=== PATIENT | female | born 1980 | race Caucasian/White ===

== ENCOUNTER 2021-03-30 12:23 | Emergency (ER) | payer OTHER, SELFPAY ==
[2021-03-30] VITALS (7 sets, daily range): BP systolic 134–151; BP diastolic 52–91; PULSE 61–97; RESP 15–23; TEMP 37.4–38.7; O2SAT 93–97
--- NOTE | ~2021-03-30 | CT_ITS ---
EXAMINATION: CT abdomen pelvis w con DATE: 03/30/2021 13:55 INDICATION: Fever and swelling along a recent section incision TECHNIQUE: Computed tomography (CT) of the abdomen and pelvis was performed with 100 mL Omnipaque-350 intravenous contrast. Automated exposure control and iterative reconstruction technique were employe d. The dose-length product was 1413.20 mGy-cm. COMPARISON: None FINDINGS: Small calcified nodule in the right lower lobe and calcified right hilar lymph node consistent with o ld granulomatous disease. Heart size is normal. No pericardial or pleural effusion. Focal hepatic nigel atosis along the ligamentum teres. Gallbladder, pancreas, right kidney and bilateral adrenal glands a re normal. 1 mm nonobstructing stone within a middle calyx of the left kidney. Bowels including the a ppendix are normal. Bladder is normal. Enlarged post gravid uterus. There is a 10.7 x 3.5 x 3.7 cm lo culated subcutaneous fluid collection along the right side of the transverse section wound w hich could represent a hematoma/seroma or abscess. No intra-abdominal abscess or free intraperitoneal gas or fluid. No pathologically enlarged abdominal or pelvic lymphadenopathy. Couple small splenic calcifications consistent with old granulomatous disease. Mild scattered degenerative skeletal change s. IMPRESSION: 1. 10.7 x 3.5 x 3.7 cm loculated subcutaneous fluid collection at the right side of the sect ion wound which could represent either a hematoma/seroma or abscess. 2. Nonobstructing 1 mm left renal stone. Reviewed, dictated and finalized at location A. IMPRESSION: 1. 10.7 x 3.5 x 3.7 cm loculated subcutaneous fluid collection at the right danielle e of the section wound which could represent either a hematoma/seroma or abscess. 2. Nonobstructing 1 mm left renal stone.
--- NOTE | ~2021-03-30 | US_ITS ---
EXAMINATION: US percutaneous drain w cath DATE: 03/30/2021 16:48 INDICATION: section surgical wound abscess TECHNIQUE: The procedure including the risks and benefits was discussed with the patient. Risks discu ssed included bleeding and infection. The patient understood the risks and agreed to proceed. The sk in overlying the anterior right lower quadrant was prepped and draped in usual sterile fashion. Anes thetic was administered with 1% lidocaine subcutaneously. Utilizing trocar technique a 12 Lao drai nage catheter was advanced under continuous ultrasound observation into the subcutaneous fluid collec tion of concern. The needle and stiffener were removed and the loop formed. The catheter was attached to the skin with suture and an about equipment and a sterile dressing were applied. An additional ad hesive fixation device was applied. 20 mL of faria-colored purulent appearing fluid was aspirated and s ent to the lab for Gram stain and cultures as ordered by the emergency department. The catheter was t hen attached to suction drainage and was draining additional more lipyals-aqz-krkbuue fluid at the co nclusion of the procedure. Post procedure ultrasound demonstrated no hemorrhage and significant decre ase in size of the abscess cavity. FINDINGS: Ultrasound images demonstrate approximately 9 x 3.6 cm loculated subcutaneous fluid collect ion along the anterior pelvic wall the region of the surgical wound. Subsequent images demonstrate th e drainage catheter within the fluid collection. IMPRESSION: 1. Successful Ultrasound-guided percutaneous abscess drain catheter placement into a left anterior pe lvic subcutaneous surgical wound abscess. Reviewed, dictated and finalized at location A. IMPRESSION: 1. Successful Ultrasound-guided percutaneous abscess drain catheter placement i nto a left anterior pelvic subcutaneous surgical wound abscess.
--- NOTE | ~2021-03-30 | XR_ITS ---
EXAMINATION: XR chest 2V EXAM DATE: 03/30/2021 14:02 INDICATION: Fever and chills. Asir in section 2 weeks ago. TECHNIQUE: Frontal and lateral projections of the chest obtained and reviewed. There is no prior ana dy for comparison. FINDINGS: The lungs are clear. There are no pleural effusions. The cardiomediastinal silhouette is within normal limits. There is no pneumothorax suspected. The bones and soft tissues are unremarkab le. IMPRESSION: No acute cardiopulmonary findings. Reviewed, dictated and finalized at location B.
[2021-03-30 13:28] LABS: Basophils Percent Auto 0.4 % (0.2-1.2); Eosinophils Absolute Auto 0.2 K/mm3 (0-0.3); Hematocrit 32.7 % (37.0-47.0); Hemoglobin 10.8 g/dL (12.0-15.0); Immature Granulocyte Absolute 0.09 K/mm3 (0.00-0.031); Lymphocytes Absolute Auto 0.83 K/mm3 (0.9-3.2); Lymphocytes Percent Auto 8.9 % (18.3-44.2); Mean Corpuscular Hemoglobin 29.8 pg (26-34); Mean Corpuscular Volume 90.3 fl (80-100); Mean Platelet Volume 9.9 fl (7.4-10.4); Monocytes Absolute Auto 0.4 K/mm3 (0.1-0.6); Monocytes Percent Auto 4.2 % (2.6-8.5); Neutrophils Absolute Auto 7.8 K/mm3 (1.3-6.7); Neutrophils Percent Auto 83.5 % (45.5-73.1); Platelet Count Result 398 k/mm3 (150-375); Red Blood Count 3.62 M/mm3 (4.2-5.4); Red Cell Distribution Width 14.3 % (11.5-14.5); White Blood Count 9.3 K/mm3 (4.5-10.0)
[2021-03-30 13:35] LABS: Add Urine Microscopic? YES; Appearance Urine Cloudy (Clear); Bacteria Urine Trace /hpf; Bilirubin Urine Negative (Negative); Blood Urine 2+ (Negative); Color Urine Amber (Yellow); Glucose Urine UA Negative (Negative); Ketones Urine Negative (Negative); Lactic Acid Reflex 0.9 mmol/L (0.7-2.1); Leukocyte Esterase Ur 1+ LEU/UL (Negative); Mucus Urine Rare /lpf; Nitrate Urine Negative (Negative); Protein Urine 1+ mg/dL (Negative); Specific Grav Ur 1.013 (1.001-1.035); Squamous Epithelial Cell Urine Rare /hpf (Few); Urobilinogen Urine Negative mg/dL (<2.0)
[2021-03-30 13:38] LABS: Alanine Aminotransferase 21 U/L (4-35); Albumin Level 3.5 g/dL (3.5-5.1); Alkaline Phosphatase 80 U/L (38-126); Anion Gap 5 mmol/L (8-16); Aspartate Amino Transferase 30 U/L (14-36); Bilirubin,Total 0.3 mg/dL (0.2-1.3); Blood Urea Nitrogen 9 mg/dL (7-17); CRP 5.3 mg/dL (<1.0); Calcium 8.8 mg/dL (8.4-10.2); Carbon Dioxide 27 mmol/L (22-30); Chloride 106 mmol/L (98-107); Estimated CRCL calculation 144 ml/min; Estimated Glomerular Filt Rate > 60; Glucose 88 mg/dL (65-105); Potassium 3.6 mmol/L (3.4-5.0); Sodium 138 mmol/L (137-145)
[2021-03-30] MEDS: SODIUM CHLORIDE 0.9% IV 1,000 ML 999 ML IV CONT (13:38)
[2021-03-30 13:39] LABS: INR 1.1; Prothrombin Time 14.4 Seconds (11.1-14.7)
[2021-03-30 13:40] LABS: Partial Thromboplastin Time 28.7 SECONDS (22.3-36.8)
--- NOTE | 2021-03-30 14:39 | ED.FEVER ---
HPI - Fever General Chief Complaint: Fever Stated Complaint: Itching,swelling feet,shivering Time Seen by Provider: 03/30/21 13:01 Source: patient and RN notes reviewed Mode of arrival: ambulatory Limitations: no limitations History of Present Illness HPI Narrative: Patient is a 40-year-old female who presents to emergency department for evaluation of fever chills sweats that began today acutely patient gave on 03/14 with twins patient is followed by [facility] COD CLERK Shayy Segundo. Patient notes that she has been fine until today. Patient denies any known sources or illnesses or sick contacts. Patient has been taking ibuprofen and Tylenol for her symptoms. Denies any fever chills nausea vomiting diarrhea vaginal bleeding discharge or any wounds or sores Related Data Home Medications Medication Instructions Recorded Confirmed Daily 03/30/21 Miralax 03/30/21 Prevacid 03/30/21 Super B Complex 03/30/21 magcefdlpy-bygglhhnzmdwq-vjwa tablet 03/30/21 cholecalciferol (vitamin D3) 03/30/21 ibuprofen 03/30/21 Allergies Allergy/AdvReac Type Severity Reaction Status Date / Time No Known Allergies Allergy Verified 03/30/21 12:53 Review of Systems Review of Systems: All systems reviewed & are unremarkable except as noted in HPI and below PMFSH Past Medical History Medical History Obesity, morbid, BMI 40.0-49.9 Family History Family History Father Hypertension Family history of malignant neoplasm of kidney Sibling Family history of cardiac disorder Social History Social History Smoking status: Never smoker Alcohol intake: never Exam Narrative: Exam Narrative: GENERAL: Well-appearing, well-nourished, and in no acute distress. HEAD: Normocephalic, atraumatic. EYES: PERRLA and EOMI. ENT: Nares clear, no rhinorrhea or epistaxis. Mucous membranes moist. CHEST: Clear to auscultation. No respiratory distress. No wheezes rales or rhonchi HEART: Regular rate and rhythm. No murmur heard. Normal peripheral pulses. BREASTS: No wounds or sores of the breast ABDOMEN: Soft, nontender, nondistended EXTREMITIES: Normal range of motion. No edema. SKIN: Warm, dry, no rash. Patient with firm tender indurated warm to touch area along the right midline abdomen at the incision no drainage NEURO: No focal deficits. Alert and oriented x3. Cranial nerves II through XII grossly intact PSYCH: Normal mood and affect. Course Course Emergency Course: Patient was evaluated in the emergency department found to have seroma turn abscess at her abdominal wall from her discussions were made with her employment attorney and with radiology at [facility] the drain was placed purulent drainage was obtained and she will follow with her employment attorney on Friday was given antibiotics and medications and fluids in the emergency department with improvement cultures were sent patient agrees with this plan and will go home and follow with her on Friday Consultations Consultation #1: Discussions were made with the employment attorney Shayy Segundo who will follow the patient on Friday the drain is to be placed which is able to be done at [facility] will be managed with Keflex antibiotics pending cultures over the weekend Date: 03/30/21 Vital Signs Vital signs: Vital Signs Temperature 101.6 F H 03/30/21 12:34 Pulse Rate 97 03/30/21 12:34 Respiratory Rate 18 03/30/21 12:34 Blood Pressure 149/77 H 03/30/21 12:34 Pulse Oximetry 97 03/30/21 12:34 Temperature 99.4 F 03/30/21 14:06 Pulse Rate 72 03/30/21 16:59 Respiratory Rate 17 03/30/21 16:59 Blood Pressure 143/85 H 03/30/21 16:59 Pulse Oximetry 97 03/30/21 16:59 MDM - Fever MDM Narrative Medical decision making narrative: Patient presented with fever with impr
--- NOTE | 2021-03-30 18:39 | PC.NURSE ---
Addendum entered by Mayela Krishna RN 03/30/21 18:40: angélica polanco notified. Original Note: per ray in lab pt has a positive gram stain few gram + cocci many wbc
== END 2021-03-30 17:54 | disposition home or self-care (01) ==
PROVIDERS: Emergency Medicine Emergency Medical Services; Emergency Provider Emergency Medicine; PCP Family Medicine
DX: O86.01 Infection of obstetric surgical wound, superficial incisional site (principal); O99.893 Other specified diseases and conditions complicating puerperium; N20.0 Calculus of kidney; O99.215 Obesity complicating the puerperium; E66.01 Morbid (severe) obesity due to excess calories
CPT/HCPCS: 36415; 71046; 74177; 75989; 80053; 81001; 83605; 85025; 85610; 85730; 86140; 87040; 87070; 87075; 87086; 87088; 87147; 87186; 87205; 96361; 96365; 96367; 99284; C1729; J0131; J2543; J7030; Q9967

== ENCOUNTER → 2021-07-25 12:36 | Outpatient (CLI) | payer OTHER, SELFPAY ==
--- NOTE | ~2021-07-25 | XR_ITS ---
EXAMINATION: XR foot LT min 3V EXAM DATE: 07/25/2021 13:17 INDICATION: M77.42 - Metatarsalgia, left foot . Midfoot pain, anterior swelling. Medial ankle pain. N o known recent trauma. TECHNIQUE: Left foot dorsoplantar, lateral and oblique projections obtained and reviewed. There is n o prior study for comparison. FINDINGS: Left metatarsal bones unremarkable. Small calcaneal inferior spur. There are no acute fr actures or dislocations identified. There is no subcutaneous gas. The soft tissue is unremarkable. There are no radiopaque foreign bodies. IMPRESSION: 1. Unremarkable XR foot LT min 3V exam. Reviewed, dictated and finalized at location B.
== END ==
PROVIDERS: PCP Family Medicine; Visit Provider Family Medicine
DX: M77.42 Metatarsalgia, left foot (principal); E66.9 Obesity, unspecified; M77.32 Calcaneal spur, left foot
CPT/HCPCS: 73630

== ENCOUNTER 2022-07-09 09:31 | Outpatient (CLI) | payer OTHER, SELFPAY ==
--- NOTE | 2022-07-09 09:42 | ECHO_ITS ---
Patient Info Name: Cecilia Beckwith Age: 41 years : 1980 Gender: Female Ht: 67 in Wt: 240 lbs BSA: 2.32 m2 HR: 74 bpm BP: 134 / 87 mmHg Heart Rhythm: Sinus Rhythm Technical Quality: Good Exam Date: 07/09/2022 9:59 AM Exam Location: [facility] Patient Status: Outpatient Admit Date: 07/09/2022 Staff Ordering Physician: Winsome Burrell MD Fire Lieutenant Marine: Jania Bailey RDCS Attending Provider: Winsome Burrell MD Referring Physician: Indra HOLLAND; Exam Type: CA echo doppler color flow Study Info Indications - FAMILY HISTORY OF GENETIC CARDIOMYOPATHY Complete two-dimensional, color flow and Doppler transthoracic echocardiogram is performed. Summary 1. Complete two-dimensional, color flow and Doppler transthoracic echocardiogram is performed. 2. Left ventricular chamber dimension is normal. 3. Left ventricular systolic function is normal, estimated at 60-65%. 4. The left ventricular diastolic function is normal. 5. E/e' 9 is minimally elevated. 6. There is trace tricuspid valve regurgitation. Left Ventricle E/e' 9 is minimally elevated. Left ventricular chamber dimension is normal. Left ventricular systolic function is normal, estimated at 60-65%. The left ventricular diastolic function is normal. Right Ventricle Right ventricular systolic function is normal and with normal TAPSE 2.4 cm. Right ventricular chamber dimension is normal. Left Atria Left atrial chamber dimension is normal. Right Atria Right atrial chamber dimension is normal. Aortic Valve The aortic valve is trileaflet. There is no aortic valve stenosis. There is no aortic valve regurgitation. Pulmonic Valve There is no pulmonic regurgitation. Mitral Valve There is no mitral valve stenosis. There is no mitral valve regurgitation. Tricuspid Valve There is trace tricuspid valve regurgitation. RVSP is not calculated due to an inadequate TR jet. Pericardium/Pleural There is no pericardial effusion. Inferior Vena Cava Normal inferior vena cava with >50% collapse upon inspiration consistent with normal right atrial pressure, 5 mmHg. Aorta The aortic root size at the sinus of Valsalva is normal. Left Ventricular Outflow Tract Name Value Normal LVOT 2D LVOT Diameter 2.3 cm LVOT Doppler LVOT Peak Gradient 4 mmHg LVOT Mean Gradient 2 mmHg LVOT VTI 23 cm LVOT VTI/AV VTI Ratio 0.8 LVOT Stroke Volume 96 ml LVOT CO 6.4 l/min LVOT CI 2.8 l/min/m2 Pulmonic Valve Name Value Normal RVOT Doppler RVOT Peak Gradient 2 mmHg PV Doppler
== END 2022-07-09 09:32 | disposition home or self-care (01) ==
PROVIDERS: PCP Family Medicine; Visit Provider Family Medicine
DX: Z82.49 Family history of ischemic heart disease and other diseases of the circulatory system (principal)
CPT/HCPCS: 93306

== ENCOUNTER 2022-08-14 08:49 | Outpatient (CLI) | payer OTHER, SELFPAY ==
--- NOTE | ~2022-08-14 | MM_ITS ---
EXAMINATION: MM screening raymon BI w jessie HISTORY: Baseline screening mammogram TECHNIQUE: Craniocaudal and mediolateral oblique 3-D tomosynthesis images were obtained and synthetic 2-D images were generated. CAD analysis was submitted and interpreted. COMPARISON: None, baseline BREAST PARENCHYMAL COMPOSITION: There are scattered areas of fibroglandular density. FINDINGS: There is no suspicious mass, calcification, or architectural distortion to suggest malignan cy in either breast. There has been no suspicious interval change. IMPRESSION: 1. No mammographic evidence of malignancy. 2. Recommend routine screening mammography in one year. BI-RADS Category 1: Negative Reviewed, dictated and finalized at location D.
== END 2022-08-14 08:50 | disposition home or self-care (01) ==
PROVIDERS: PCP Family Medicine; Visit Provider Family Medicine
DX: Z12.31 Encounter for screening mammogram for malignant neoplasm of breast (principal)
CPT/HCPCS: 77063; 77067

== ENCOUNTER 2022-12-11 11:14 | Outpatient (CLI) | payer OTHER, SELFPAY ==
[2022-12-11 12:35] LABS: Kit Draw Collected
== END 2022-12-11 11:15 | disposition home or self-care (01) ==
LOC: ANHGOSHLAB 11:15
PROVIDERS: PCP Family Medicine; Visit Provider Family Medicine
DX: N92.1 Excessive and frequent menstruation with irregular cycle (principal); E66.9 Obesity, unspecified; G35 Multiple sclerosis; N92.4 Excessive bleeding in the premenopausal period
CPT/HCPCS: 36415

== ENCOUNTER → 2023-12-30 08:46 | Outpatient (CLI) | payer OTHER, SELFPAY ==
--- NOTE | ~2023-12-30 | US_ITS ---
EXAMINATION: US abdomen complete DATE: 12/30/2023 09:03 INDICATION: Unspecified abdominal pain. TECHNIQUE: Multiple grayscale and Doppler ultrasound images of the abdomen were obtained. COMPARISON: CT abdomen and pelvis 03/30/2021 FINDINGS: The visualized portions of the head of the pancreas are normal. The liver is normal without focal lesion. There is normal flow in main portal vein. The gallbladder is normal in size. No gallst ones or gallbladder wall thickening. There is no sonographic Richards sign. The common duct is normal a nd measures 4 mm. Abdominal aorta is normal in caliber. The kidneys are normal in size. The spleen is normal in size. Calcifications in the spleen are consistent with old granulomatous disease. Inferior vena cava is normal. IMPRESSION: 1. No etiology for the patient's symptoms. Reviewed, dictated and finalized at location A. ORATOR LOADER
== END ==
PROVIDERS: PCP Family Medicine; Visit Provider Family Medicine
DX: R10.9 Unspecified abdominal pain (principal)
CPT/HCPCS: 76700

== ENCOUNTER 2024-03-16 01:03 | Day surgery (SDC) | payer OTHER, SELFPAY ==
[2024-03-08 14:25] VITALS: BMI 37.5
[2024-03-16 10:07] VITALS: BP 150/96; PULSE 80; RESP 18; TEMP 36.1; O2SAT 100
[2024-03-16] MEDS: LACTATED RINGERS 1,000 ML 150 ML IV CONT (10:20)
--- NOTE | 2024-03-16 10:30 | WPDANESEPPF ---
Anes - Initial Pre Proc Eval Procedure: Operation Date: 03/16/24 11:30 Proposed Procedures p Esophagogastroduodenoscopy & Colonoscopy - Rajan Dailey MD Date/Time: 03/16/24 10:30 Surgeon: Rajan Dailey MD Pre Op Diagnosis: GERD,Abdominal pain Patient Data Age: 43 Gender: F Height: 1.7 m Weight: 110 kg Last Vital Signs Temp 97 F L 03/16/24 10:07 Pulse 80 03/16/24 10:07 Resp 18 03/16/24 10:07 BP 150/96 H 03/16/24 10:07 Pulse Ox 100 03/16/24 10:07 O2 Del Method Room Air 03/16/24 10:07 Allergies Allergy/AdvReac Type Severity Reaction Status Date / Time No Known Allergies Allergy Verified 03/16/24 10:04 Home Medications Medication Instructions Recorded Confirmed Type teriflunomide 14 mg tablet 14 mg PO DAILY 07/11/22 03/08/24 History (Aubagio) metformin 500 mg tablet,extended 500 mg PO .COMPLEX #90 tabs 01/26/23 03/08/24 Rx release 24 hr lansoprazole 30 mg capsule,delayed 30 mg PO DAILY #90 caps 12/18/23 03/08/24 Rx release mecobalamin (vitamin B12) 1,000 1,000 mcg PO DAILY #30 tabs 12/26/23 03/08/24 Rx mcg chewable tablet vitamin B complex 1 tablet PO DAILY #30 tabs 12/26/23 03/08/24 Rx Turmeric/Curcumen 15,000 mg PO DAILY 03/08/24 03/08/24 History cholecalciferol (vitamin D3) 125 5,000 unit PO DAILY 03/08/24 03/08/24 History mcg (5,000 unit) tablet (Vitamin D3) vqkolqpr-nbg-agcm 4 mg-folic acid 1 tablet PO DAILY 03/08/24 03/08/24 History 200 mcg-vit K 25 mcg-lutein tablet (Centrum Minis Women 50 Plus) Patient hx anesthesia problems: none Family hx anesthesia problems: none Results Review: All pre-operative results and documents have been reviewed as part of the pre-operative evaluation. [facility] Past Medical History Medical History Hematoma (nontraumatic) of breast Traumatic hematoma of buttock Surgical History Surgical History H/O arthroscopic knee surgery Left Knee H/O arthroscopic knee surgery Left Knee H/O arthroscopic knee surgery Left Knee Family History Family History Father Hypertension Family history of malignant neoplasm of kidney Bladder cancer Sibling Family history of cardiac disorder Social History Social History (Updated 01/27/24 @ 14:57 by Mayela Miller MA) Smoking status: Never smoker Alcohol intake: current Drinks per week: 2 Alcohol use details: DRINKS Substance use: never Substance use type: does not use Do You Feel Safe in your Home?: Yes Lack of Transportation: No Lack of Food: Never True Current Housing: I Have Housing Concerned About Future Housing: No Difficulty Paying Gas/Electric Bills: No Difficulty Paying for Meds: No Currently Unemployed: No Education: Master's Degree or Higher Difficulty w/ Childcare or Family Care: No Living arrangements: with family Spiritual care concerns: No Anes - Eval Final PreProcedure Day of Procedure 03/16/24 10:30 Patient weight: obese Heart: regular rate and rhythm Lungs: clear to auscultation Airway: Mallampati scale class II Neurological: alert and oriented Last oral intake: >/= 8 hours ASA classification: III Emergent: no Anesthetic plan: proceed Anesthesia type and monitoring: general GIVS and standard monitoring Results Review: All pre-operative results and documents have been reviewed as part of the pre-operative evaluation. Informed Consent: The patient's anesthetic plan and its attendant risks and benefits were discussed with the patient/family/POA. Questions were solicited and answers provided to the satisfaction of the patient/family/POA.
--- NOTE | 2024-03-16 10:42 | PM.HPGS ---
History of Present Illness History of Present Illness Consent: Risks, benefits, and alternatives have been discussed and questions answered. Patient agrees to proceed with procedure. Chief complaint: GERD,Abdominal pain Narrative: Cecilia Beckwith is a 43 year old female with intermittent abdominal pain (had of twins then developed abscess and having pain in rlq since), also gerd for which lansoprazole is helping. Never had scopes. Review of Systems Review of Systems: All systems reviewed & are unremarkable except as noted in HPI and below PMFSH Past Medical History Medical History Hematoma (nontraumatic) of breast Traumatic hematoma of buttock Surgical History Surgical History H/O arthroscopic knee surgery Left Knee H/O arthroscopic knee surgery Left Knee H/O arthroscopic knee surgery Left Knee Family History Family History Father Hypertension Family history of malignant neoplasm of kidney Bladder cancer Sibling Family history of cardiac disorder Social History Social History (Updated 01/27/24 @ 14:57 by Mayela Miller MA) Smoking status: Never smoker Alcohol intake: current Drinks per week: 2 Alcohol use details: DRINKS Substance use: never Substance use type: does not use Do You Feel Safe in your Home?: Yes Lack of Transportation: No Lack of Food: Never True Current Housing: I Have Housing Concerned About Future Housing: No Difficulty Paying Gas/Electric Bills: No Difficulty Paying for Meds: No Currently Unemployed: No Education: Master's Degree or Higher Difficulty w/ Childcare or Family Care: No Living arrangements: with family Spiritual care concerns: No Meds Home Medications and Allergies Home Medications Medication Instructions Recorded Confirmed Type teriflunomide 14 mg tablet 14 mg PO DAILY 07/11/22 03/08/24 History ([place]ane) metformin 500 mg tablet,extended 500 mg PO .COMPLEX #90 tabs 01/26/23 03/08/24 Rx release 24 hr lansoprazole 30 mg capsule,delayed 30 mg PO DAILY #90 caps 12/18/23 03/08/24 Rx release mecobalamin (vitamin B12) 1,000 1,000 mcg PO DAILY #30 tabs 12/26/23 03/08/24 Rx mcg chewable tablet vitamin B complex 1 tablet PO DAILY #30 tabs 12/26/23 03/08/24 Rx Turmeric/Curcumen 15,000 mg PO DAILY 03/08/24 03/08/24 History cholecalciferol (vitamin D3) 125 5,000 unit PO DAILY 03/08/24 03/08/24 History mcg (5,000 unit) tablet (Vitamin D3) ddwskvhu-syt-npti 4 mg-folic acid 1 tablet PO DAILY 03/08/24 03/08/24 History 200 mcg-vit K 25 mcg-lutein tablet (Centrum Minis Women 50 Plus) Allergies Allergy/AdvReac Type Severity Reaction Status Date / Time No Known Allergies Allergy Verified 03/16/24 10:04 Vital Signs Vital Signs - 24 hr 03/16/24 10:07 Temperature 97 F L Pulse Rate 80 Respiratory Rate 18 Blood Pressure 150/96 H Pulse Oximetry 100 Oxygen Delivery Room Air Exam Const: General: comfortable and no acute distress HENMT: Face/Nose/Sinus: Normal nares present Eyes: General: appearance normal, both eyes and all related structures Neck: Neck: no JVD Resp: Auscultation: clear to auscultation bilaterally Cardio: Rate: regular rate Rhythm: regular rhythm GI: Inspection: non-distended GI Palp: Yes Soft to palpation Skin: General skin exam: normal color Neuro: General: gait normal Speech: normal speech Extrem: General: normal to inspection Psych: Mental Status: mental status grossly normal Assessment and Plan Assessment and plan (1) Chronic GERD: Code(s): K21.9 - Gastro-esophageal reflux disease without esophagitis Status: Acute Assessment and Plan: egd already on ppi (2) Abdominal pain: Code(s): R10
[2024-03-16] MEDS: BENZOCAINE (*SP) 60 ML SPRAY CAN (HURRICAINE) 1 SPRAY MUCOUS MEM (10:50)
--- NOTE | 2024-03-16 11:01 | SUR.OPER ---
EGD: [id number] COLON: Start 1109
[2024-03-16 11:11] VITALS: BP 144/91; PULSE 82; RESP 19; O2SAT 100
[2024-03-16 11:21] VITALS: BP 156/96; PULSE 73; RESP 20; O2SAT 100
[2024-03-16 11:31] VITALS: BP 158/90; PULSE 70; RESP 15; O2SAT 100
== END 2024-03-16 11:40 | disposition home or self-care (01) ==
PROVIDERS: PCP Family Medicine; Visit Provider Internal Medicine Gastroenterology
PROC: 0DJ08ZZ Inspection of Upper Intestinal Tract, Via Natural or Artificial Opening Endoscopic (ICD-10-PCS; CPT 43235; principal; 2024-03-16 11:30)
DX: R10.9 Unspecified abdominal pain (principal); K64.8 Other hemorrhoids; K21.9 Gastro-esophageal reflux disease without esophagitis; E66.9 Obesity, unspecified; Z68.38 Body mass index [BMI] 38.0-38.9, adult; Z79.84 Long term (current) use of oral hypoglycemic drugs; Z98.890 Other specified postprocedural states; Z80.52 Family history of malignant neoplasm of bladder; Z80.51 Family history of malignant neoplasm of kidney; Z82.49 Family history of ischemic heart disease and other diseases of the circulatory system
CPT/HCPCS: 43239; 45378; 88305; J2704; J7120

== ENCOUNTER 2024-08-11 01:49 | Day surgery (SDC) | payer OTHER, SELFPAY ==
[2024-08-04 09:03] VITALS: BMI 38.7
--- NOTE | 2024-08-04 09:11 | PC.NURSE ---
Addendum entered by Emily Mcgarry RN 08/05/24 11:01: Left message for patient to NOT take telmisartan morning of surgery. Original Note: Report to the Outpatient Waiting Room, entrance under the green pavilion located off [facility], at time 1130__ on date _08/11/24_. Planned Procedure Time: _1330__.? Time changes happen often and if your time is changed the preop area will call you the afternoon before. - You and your visitor will be asked to self-screen and do not enter if you have any COVID symptoms. Please call surgeon if you need to reschedule. - A mask is optional within the hospital at this time. Patients may have clear liquids (water, carbonated beverages, clear teas, apple juice) until 3 hours prior to surgery with a maximum of 20 ounces. - No food from midnight until time of surgery and no smoking - Infants may have breast milk until 4 hours before surgery, formula 6 hours prior to surgery. - Children will be allowed to drink immediately following surgery.? If applicable, please bring a bottle or sippy cup to assist with drinking. Juice, water, soda, and popsicles are readily available.? For infants on formula, please bring formula the day of surgery.? Pacifiers are allowed. Take only the following medications with a SIP of water on the morning of surgery: TELMISARTAN, ABAGIO DO NOT STOP ANY OF YOUR OTHER PRESCRIPTION MEDICATIONS PRIOR TO SURGERY EXCEPT THE FOLLOWING Medications to discontinue per physician VITAMINS AND SUPPLIMENTS Date to take last dose___08/08/24 ____ Please no make-up, nail surinamese, hairspray, perfume, deodorant, or body powder the day of surgery.? No jewelry (including any body piercings) or valuables the day of surgery, leave them at home.? Please take a shower or bath the night before, or the morning of, surgery with an antibacterial soap.? Wear comfortable, loose fitting clothing.? Children are encouraged to wear pajamas. - Jewelry must be removed prior to entering the operating room.? Rings and piercings that are not removed may be cut off. - The hospital will not accept responsibility for valuables.? - Please leave all valuables, including medications, at home the day of surgery. If you are going home after surgery, a licensed pile driver engineer must drive you home.? - NO public transportation without another adult if you receive anesthesia. - We recommend that an adult stay with you for 24 hours following discharge. - We also recommend that you do not drive, make important decision, drink alcoholic beverages, or take any drugs that were not prescribed by your health care provider for at least 24 hours after your discharge time. For Pediatric surgeries, we recommend two adults accompany the child home. Follow any additional instructions given to you from your surgeon. Telephone instructions given to __PATIENT_and asked if any additional questions and then verbalized understanding. Patient advised to call surgeon office or pre surgery nurse liaison [phone] if any additional questions.
[2024-08-11 11:38] VITALS: BP 148/86; PULSE 84; RESP 16; TEMP 36.4; O2SAT 100
[2024-08-11 11:42] LABS: BEDSIDEPREGUCG Negative (Negative)
[2024-08-11] MEDS: ACETAMINOPHEN 500 MG TABLET 1000 MG PO (11:50)
[2024-08-11] MEDS: LACTATED RINGERS 1,000 ML 30 ML IV CONT (11:55)
--- NOTE | 2024-08-11 12:04 | PM.IMHP ---
H&P: HPI History of Present Illness Date/Time: 08/11/24 12:04 Chief Complaint: Heavy menses Narrative: 43 /p with heavy, prolnged menses. Ultrasound exam shows an endometrial complex 1 cm thick. She does not need contraception. Review of Systems Review of Systems: All systems reviewed & are unremarkable except as noted in HPI and below PMFSH Past Medical History Medical History Chronic hypertension Hematoma (nontraumatic) of breast Multiple sclerosis Traumatic hematoma of buttock Surgical History Surgical History H/O arthroscopic knee surgery Left Knee H/O arthroscopic knee surgery Left Knee H/O arthroscopic knee surgery Left Knee Family History Family History Father Hypertension Family history of malignant neoplasm of kidney Bladder cancer Sibling Family history of cardiac disorder Social History Social History Smoking status: Never smoker Alcohol intake: current Drinks per week: 3 Alcohol use details: wine Substance use: never Substance use type: does not use Do You Feel Safe in your Home?: Yes Lack of Transportation: No Lack of Food: Never True Current Housing: I Have Housing Concerned About Future Housing: No Difficulty Paying Gas/Electric Bills: No Difficulty Paying for Meds: No Currently Unemployed: No Education: Master's Degree or Higher Difficulty w/ Childcare or Family Care: No Living arrangements: with family Spiritual care concerns: No Meds Home Medications and Allergies Home Medications Medication Instructions Recorded Confirmed Type teriflunomide 14 mg tablet 14 mg PO DAILY 07/11/22 08/11/24 History ([place]) lansoprazole 30 mg capsule,delayed 30 mg PO DAILY #90 caps 12/18/23 08/11/24 Rx release mecobalamin (vitamin B12) 1,000 1,000 mcg PO DAILY #30 tabs 12/26/23 08/11/24 Rx mcg chewable tablet vitamin B complex 1 tablet PO DAILY #30 tabs 12/26/23 08/11/24 Rx cholecalciferol (vitamin D3) 125 5,000 unit PO DAILY 03/08/24 08/11/24 History mcg (5,000 unit) tablet (Vitamin D3) [id number] 4 mg-folic acid 1 tablet PO DAILY 03/08/24 08/11/24 History 200 mcg-vit K 25 mcg-lutein tablet (Centrum Minis Women 50 Plus) telmisartan 20 mg tablet 20 mg PO DAILY #90 tabs 04/06/24 08/11/24 Rx metformin 500 mg tablet,extended 500 mg PO .COMPLEX #90 tabs 06/11/24 08/11/24 Rx release 24 hr Cellabeauty 1 cap PO DAILY 08/04/24 08/11/24 History bupropion HCl 300 mg 24 hr tablet, 300 mg PO HS 08/04/24 08/11/24 History extended release naltrexone 50 mg tablet 50 mg PO HS 08/04/24 08/11/24 History Allergies Allergy/AdvReac Type Severity Reaction Status Date / Time No Known Allergies Allergy Verified 08/11/24 11:38 Vital Signs Vital Signs - 24 hr 08/11/24 11:38 Temperature 36.4 C Pulse Rate 84 Respiratory Rate 16 Blood Pressure 148/86 H Pulse Oximetry 100 Oxygen Delivery Room Air Exam Const: Orientation/consciousness: patient oriented x3 Other: Well-developed, well-nourished female in no acute distress. Neck: Thyroid: thyroid normal Lymphatic: no lymphadenopathy noted (in neck, axilla or inguinal nodes) Resp: Effort & Inspection: normal respiratory effort Auscultation: clear to auscultation bilaterally Cardio: Rate: regular rate Rhythm: regular rhythm Heart sounds: S1 normal heart sound present and S2 normal heart sound present GI: Other: ABD: Soft, nontender, nondistended. No guarding or rebound tenderness. No hepatosplenomegaly. : General: Yes no CVA tenderness Other: External genitalia: normal female hair distribution, without lesion. Urethral meatus: no lesion, non prolapsed. Bladder: no mass, non
--- NOTE | 2024-08-11 12:08 | WPDHPUPDATE1 ---
History and Physical Update Update Date/Time: 08/11/24 12:08 History and Physical has been reviewed, including an updated exam of the patient. There are NO changes in the patient's condition. Risks, benefits, and alternatives have been discussed and questions answered. Patient agrees to proceed with procedure.
--- NOTE | 2024-08-11 13:49 | WPDANESEPPF ---
Anes - Initial Pre Proc Eval Procedure: Operation Date: 08/11/24 13:30 Proposed Procedures p Hysteroscopy Dilation and Curettage Debora Endometrial Ablation - Kostas Day MD Date/Time: 08/11/24 13:49 Surgeon: Kostas Day MD Pre Op Diagnosis: Excessive Bleeding Patient Data Age: 44 Gender: F Height: 1.7 m Weight: 112.8 kg Last Vital Signs Temp 97.6 F 08/11/24 11:38 Pulse 84 08/11/24 11:38 Resp 16 08/11/24 11:38 BP 148/86 H 08/11/24 11:38 Pulse Ox 100 08/11/24 11:38 O2 Del Method Room Air 08/11/24 11:38 Allergies Allergy/AdvReac Type Severity Reaction Status Date / Time No Known Allergies Allergy Verified 08/11/24 11:38 Home Medications Medication Instructions Recorded Confirmed Type teriflunomide 14 mg tablet 14 mg PO DAILY 07/11/22 08/11/24 History ([place]agio) lansoprazole 30 mg capsule,delayed 30 mg PO DAILY #90 caps 12/18/23 08/11/24 Rx release mecobalamin (vitamin B12) 1,000 1,000 mcg PO DAILY #30 tabs 12/26/23 08/11/24 Rx mcg chewable tablet vitamin B complex 1 tablet PO DAILY #30 tabs 12/26/23 08/11/24 Rx cholecalciferol (vitamin D3) 125 5,000 unit PO DAILY 03/08/24 08/11/24 History mcg (5,000 unit) tablet (Vitamin D3) [id number] 4 mg-folic acid 1 tablet PO DAILY 03/08/24 08/11/24 History 200 mcg-vit K 25 mcg-lutein tablet (Centrum Minis Women 50 Plus) telmisartan 20 mg tablet 20 mg PO DAILY #90 tabs 04/06/24 08/11/24 Rx metformin 500 mg tablet,extended 500 mg PO .COMPLEX #90 tabs 06/11/24 08/11/24 Rx release 24 hr Cellabeauty 1 cap PO DAILY 08/04/24 08/11/24 History bupropion HCl 300 mg 24 hr tablet, 300 mg PO HS 08/04/24 08/11/24 History extended release naltrexone 50 mg tablet 50 mg PO HS 08/04/24 08/11/24 History hydrocodone 5 mg-acetaminophen 325 1 - 2 tablet PO Q6H PRN pain #30 08/11/24 Rx mg tablet tabs Laboratory Tests 08/11/24 11:40 POC Urine HCG, Qual Negative (Negative) Patient hx anesthesia problems: post op nausea/vomiting Family hx anesthesia problems: none Results Review: All pre-operative results and documents have been reviewed as part of the pre-operative evaluation. [facility] Past Medical History Medical History Chronic hypertension Hematoma (nontraumatic) of breast Multiple sclerosis Traumatic hematoma of buttock Surgical History Surgical History H/O arthroscopic knee surgery Left Knee H/O arthroscopic knee surgery Left Knee H/O arthroscopic knee surgery Left Knee Family History Family History Father Hypertension Family history of malignant neoplasm of kidney Bladder cancer Sibling Family history of cardiac disorder Social History Social History Smoking status: Never smoker Alcohol intake: current Drinks per week: 3 Alcohol use details: wine Substance use: never Substance use type: does not use Do You Feel Safe in your Home?: Yes Lack of Transportation: No Lack of Food: Never True Current Housing: I Have Housing Concerned About Future Housing: No Difficulty Paying Gas/Electric Bills: No Difficulty Paying for Meds: No Currently Unemployed: No Education: Master's Degree or Higher Difficulty w/ Childcare or Family Care: No Living arrangements: with family Spiritual care concerns: No Anes - Eval Final PreProcedure Day of Procedure 08/11/24 13:49 Patient weight: obese Heart: regular rate and rhythm Lungs: clear to auscultation Airway: Mallampati scale class II Neurological: alert and oriented Last oral intake: >/= 8 hours ASA classification: III Emergent: no Anesthetic plan: proceed Anesthesia type and monitoring: general GI
[2024-08-11] MEDS: LIDOCAINE HCL 1% LOCAL INJ 20 ML VIAL 10 ML INFILTRATE (14:09)
--- NOTE | 2024-08-11 14:18 | W.PM.PROC2 ---
Procedure Note - Detailed Date of Procedure 08/11/24 Pre-op Diagnosis Menometrorrhagia Post-op Diagnosis Same Procedure Performed Hysteroscopy Dilation and sharp curettage Endometrial ablation Surgeon Kostas Day MD Anesthesia MAC and Local (1% lidocaine) Findings Unremarkable endometrial cavity. Both tubal ostia seen. Description of Procedure The patient was taken to the operating room where she was prepared and draped in the usual sterile fashion in the dorsal lithotomy position. The bladder was drained with a red rubber catheter. A sterile speculum was placed into the vagina. The anterior lip of the cervix was grasped with single-tooth tenaculum. Ten mL of 1% lidocaine was administered in a paracervical block. The cervix was then gently dilated using Hegar dilators until a 7 mm dilator could be passed. Hysteroscopy was performed using sterile saline as a distention medium. Findings are as noted above. Sharp curettage was then performed, and endometrial curettings were collected on a Telfa pad and passed off to be sent to pathology. Finally, the the Debora device was advanced and endometrial ablation commenced without difficulty. The device was withdrawn and a second look was taken using the hysteroscope. Excellent coverage of the endometrial cavity was noted. The tenaculum was removed. Hemostasis was excellent. Sponge, lap, needle and instrument counts were correct. The patient was awakened and taken to the recovery room in stable condition. I was present and scrubbed through the entire procedure. Estimated Blood Loss 5 Drains No Packing No Pathology Yes (Endometrial curettings) Complications None Condition Stable Disposition PACU
[2024-08-11 14:19] VITALS: BP 109/58; PULSE 75; RESP 12; O2SAT 100
[2024-08-11] MEDS: oxyCODONE HCL (*CRX) 5 MG TAB IR PO (14:29)
[2024-08-11 14:45] VITALS: BP 121/52; PULSE 67; RESP 20
[2024-08-11] MEDS: KETOROLAC 30 MG/ML VIAL (*BKC) IV PUSH (15:05)
[2024-08-11 15:15] VITALS: BP 121/60; PULSE 67; RESP 20
== END 2024-08-11 15:25 | disposition home or self-care (01) ==
PROVIDERS: PCP Family Medicine; Visit Provider Obstetrics & Gynecology
PROC: 0U5B8ZZ Destruction of Endometrium, Via Natural or Artificial Opening Endoscopic (ICD-10-PCS; CPT 58563; principal; 2024-08-11 13:30)
DX: N92.1 Excessive and frequent menstruation with irregular cycle (principal); I10 Essential (primary) hypertension; G89.18 Other acute postprocedural pain; E66.9 Obesity, unspecified; Z68.38 Body mass index [BMI] 38.0-38.9, adult; Z79.84 Long term (current) use of oral hypoglycemic drugs; Z79.891 Long term (current) use of opiate analgesic; Z98.890 Other specified postprocedural states; Z80.51 Family history of malignant neoplasm of kidney; Z80.52 Family history of malignant neoplasm of bladder; Z82.49 Family history of ischemic heart disease and other diseases of the circulatory system
CPT/HCPCS: 58563; 88305; A9270; J1100; J1885; J2250; J2405; J2704; J3010; J7120

== ENCOUNTER 2024-11-05 10:12 | Outpatient (CLI) | payer OTHER, SELFPAY ==
--- NOTE | ~2024-11-05 | CT_ITS ---
Non-contrast CT scan of the Abdomen and Pelvis Clinical indication: Abdominal pain Technique: 2.5 mm axial scans were obtained through the abdomen and pelvis without intravenous or or al contrast. Dose reduction technique was used on this scan by utilizing automated exposure control a nd iterative reconstruction technique. The dose-length product (DLP) was 1146.90 mGy-cm. COMPARISON: 03/30/2021 Findings: Images through the lung bases reveal calcified right basilar granuloma. Probable tiny punctate renal stones noted bilaterally. No ureteral stone or hydronephrosis. The liver, spleen, pancreas, gallbladder, and adrenals appear normal. There is no aortic aneurysm. There is no evidence of bowel obstruction. Images through the pelvis were performed. There is no evidence of ascites or lymphadenopathy. Urinary bladder unremarkable. Probable small bilateral ovarian cysts present. Impression: Punctate bilateral nonobstructing renal stones. Small bilateral adnexal cysts. Reviewed, dictated and finalized at [facility]. [employer] Impression: Punctate bilateral nonobstructing renal stones. Small bilateral adnexal cysts.
== END 2024-11-05 10:13 | disposition home or self-care (01) ==
LOC: GOSHIMG 10:13
PROVIDERS: PCP Family Medicine; Visit Provider Family Medicine
DX: N20.0 Calculus of kidney (principal); N83.292 Other ovarian cyst, left side; N83.291 Other ovarian cyst, right side
CPT/HCPCS: 74176

== ENCOUNTER 2024-11-11 10:41 | Outpatient (CLI) | payer OTHER, SELFPAY ==
--- NOTE | ~2024-11-11 | MMUS_ITS ---
EXAMINATION: MM diagnostic raymon BI w jessie, US breast LT limited HISTORY: Palpable left breast lump TECHNIQUE: Additional 3-D tomosynthesis images of the breasts were performed and synthetic 2-D images were generated. CAD analysis was submitted and interpreted. High resolution Limited left breast ultr asound was performed. COMPARISON: 08/14/2022 BREAST PARENCHYMAL COMPOSITION: Not dense: There are scattered areas of fibroglandular density. FINDINGS: MAMMOGRAPHIC FINDINGS: The breasts are stable without evidence for malignancy. No new masses, calcifications or architectura l distortion. ULTRASOUND: Limited left breast ultrasound: Normal heterogeneous echotexture without focal solid or cystic mass. No sonographic evidence for malignancy. IMPRESSION: 1. No evidence for malignancy in either breast. 2. Routine yearly screening mammogram and regular clinical breast examination are recommended. BI-RADS Category 1: Negative Reviewed, dictated and finalized at location [facility]. R CARE SPECIALIST IMPRESSION: 1. No evidence for malignancy in either breast. 2. Routine yearly screening mammogram and regular clinical breast examination a re recommended. BI-RADS Category 1: Negative
== END 2024-11-11 10:42 | disposition home or self-care (01) ==
LOC: ANHIMG 10:43
PROVIDERS: PCP Family Medicine; Visit Provider Nurse Practitioner Family
DX: N63.20 Unspecified lump in the left breast, unspecified quadrant (principal)
CPT/HCPCS: 76642; 77062; 77066; G0279